=== PATIENT | male | born 2000 | race Caucasian/White ===

== ENCOUNTER 2022-01-13 20:17 | Inpatient (IN) | payer MEDICAID, OTHER ==
[~2022-01-13] VITALS: Ht 175.3 cm; Wt 69.0 kg
[2022-01-13 22:36] LABS: BASOPHILS % (AUTO) 0.6 % (0.0-2.0); EOSINOPHILS % (AUTO) 2.6 % (1.0-6.0); HEMATOCRIT 45.9 % (41-53); LYMPHOCYTES # (AUTO) 1.6 K/uL (1.0-4.8); LYMPHOCYTES % (AUTO) 15.1 % (22.0-44.0); MEAN CORPUSCULAR HGB CONC 34.9 G/dL (31.0-37.0); MEAN CORPUSCULAR VOLUME 89 fL (80-100); MONOCYTES # (AUTO) 0.6 K/uL (0.1-1.0); MONOCYTES % (AUTO) 5.9 % (2.0-9.0); NEUTROPHILS # (AUTO) 7.8 K/uL (1.8-7.7); NEUTROPHILS % (AUTO) 75.8 % (40.0-70.0); PLATELET COUNT (AUTO) 230 K/uL (150-450); RED BLOOD CELL COUNT(AUTO) 5.17 MIL/uL (4.50-5.90); RED CELL DISTRIBUTION WIDTH 13.4 % (11.5-14.5)
[2022-01-13 22:45] LABS: ANION GAP 9 mmol/L (8-16); CALCIUM, TOTAL 9.2 mg/dL (8.8-10.5); CARBON DIOXIDE 27 mmol/L (22-29); CHLORIDE 103 mmol/L (98-107); CREATININE 0.97 mg/dL (0.60-1.30); GLOMERULAR FILTR. RATE CALC > 60 mL/min (>60); GLUCOSE,RANDOM 94 mg/dL (70-110); POTASSIUM 4.2 mmol/L (3.5-5.1); SODIUM SERUM 139 mmol/L (136-145); UREA NITROGEN, BLOOD 9 mg/dL (7-18)
[2022-01-13 22:51] LABS: ALANINE AMINOTRANSFERASE 30 U/L (12-78); ALBUMIN 4.5 g/dL (3.4-5.0); ALKALINE PHOSPHATASE 102 U/L (46-116); ASPARTATE AMINOTRANSFERASE 18 U/L (15-37); BILIRUBIN,TOTAL 1.3 mg/dL (0.1-1.0); TOTAL PROTEIN, SERUM 7.7 g/dL (6.4-8.2)
[2022-01-13 22:51] LABS: AMPHET/METH SCREEN,URINE NEGATIVE (NEGATIVE); BARBITURATE SCREEN, URINE NEGATIVE (NEGATIVE); BENZODIAZEPINES SCREEN,URINE NEGATIVE (NEGATIVE); CANNABINOID SCREEN,URINE NEGATIVE (NEGATIVE); COCAINE SCREEN,URINE NEGATIVE (NEGATIVE); METHADONE SCREEN, URINE NEGATIVE (NEGATIVE); OPIATE SCREEN,URINE NEGATIVE (NEGATIVE)
[2022-01-13 22:52] LABS: PHENCYCLIDINE SCREEN,URINE NEGATIVE (NEGATIVE)
[2022-01-13 23:06] LABS: COVID AG,FIA SOURCE NASAL SWAB
[2022-01-14] MEDS ORDERED: HALOPERIDOL 5 MG TABLET PO PRN (01:30)
[2022-01-14] MEDS ORDERED: ZOLPIDEM TARTRATE 10 MG TABLET PO PRN (01:30)
[2022-01-14] MEDS: LORazepam 2 MG TABLET PO PRN ×2 (02:41→17:22)
[2022-01-14 08:51] VITALS: BP 131/86
[2022-01-14] MEDS ORDERED: ALBUTEROL SULFATE HFA 90 MCG/PUFF 8 GM INHALER IH PRN (11:30)
[2022-01-14] MEDS ORDERED: IBUPROFEN 400 MG TABLET PO PRN (11:30)
[2022-01-14] MEDS ORDERED: LOPERAMIDE HCL 2 MG CAPSULE PO PRN (11:30)
[2022-01-14] MEDS ORDERED: DOCUSATE SODIUM 100 MG CAPSULE PO PRN (11:30)
[2022-01-14] MEDS ORDERED: ACETAMINOPHEN 325 MG TABLET PO PRN (11:30)
[2022-01-14] MEDS ORDERED: MAG HYDROX/AL HYDROX/SIMETH ES 30 ML SUSPENSION UDCUP PO PRN (11:30)
[2022-01-14] MEDS ORDERED: NICOTINE 14 MG/24 HOUR PATCH TD PRN (11:30)
[2022-01-14] MEDS ORDERED: MAGNESIUM HYDROXIDE SUSPENSION 30 ML UDCUP PO PRN (11:30)
[2022-01-14] MEDS ORDERED: PETROLATUM,WHITE 28 GM JELLY TP PRN (11:30)
[2022-01-14] MEDS ORDERED: GuaiFENesin/D-METHORPHAN [SUGAR-FREE] 200-20MG/10 ML SYRUP UDCUP PO PRN (11:30)
[2022-01-14] MEDS ORDERED: CloNIDine HCL 0.1 MG TABLET PO PRN (11:30)
[2022-01-14] MEDS ORDERED: ONDANSETRON HCL 4 MG TABLET PO PRN (11:30)
[2022-01-14] MEDS: SERTRALINE HCL 50 MG TABLET PO SCH (13:46)
[2022-01-14] MEDS: BusPIRone HCL 5 MG TABLET PO SCH ×2 (13:47→21:32)
[2022-01-14 16:25] VITALS: BP 120/78
[2022-01-14 17:22] VITALS: BP 128/79
[2022-01-14] MEDS: QUEtiapine FUMARATE 25 MG TABLET PO SCH (21:32)
[2022-01-15 09:09] VITALS: BP 114/74
[2022-01-15] MEDS: BusPIRone HCL 5 MG TABLET PO SCH ×2 (09:27→20:32)
[2022-01-15] MEDS: SERTRALINE HCL 50 MG TABLET PO SCH (09:27)
[2022-01-15 16:31] VITALS: BP 128/64
[2022-01-15 17:55] VITALS: BP 111/74
[2022-01-15] MEDS: LORazepam 2 MG TABLET PO PRN (17:56)
[2022-01-15] MEDS: QUEtiapine FUMARATE 25 MG TABLET PO SCH (20:32)
[2022-01-16] MEDS: BusPIRone HCL 5 MG TABLET PO SCH ×2 (09:58→20:25)
[2022-01-16] MEDS: SERTRALINE HCL 50 MG TABLET PO SCH (09:58)
[2022-01-16] MEDS: LORazepam 2 MG TABLET PO PRN (12:21)
[2022-01-16 17:39] VITALS: BP 120/70
[2022-01-16] MEDS: QUEtiapine FUMARATE 25 MG TABLET PO SCH (20:25)
[2022-01-17 08:04] VITALS: BP 128/72
[2022-01-17] MEDS: SERTRALINE HCL 50 MG TABLET PO SCH (08:38)
[2022-01-17] MEDS: BusPIRone HCL 5 MG TABLET PO SCH ×2 (08:38→20:08)
[2022-01-17] MEDS: LORazepam 2 MG TABLET PO PRN (14:16)
[2022-01-17 16:43] VITALS: BP 115/80
[2022-01-17] MEDS: QUEtiapine FUMARATE 25 MG TABLET PO SCH (20:08)
[2022-01-18 08:00] VITALS: BP 112/73
[2022-01-18] MEDS: SERTRALINE HCL 50 MG TABLET PO SCH (11:17)
[2022-01-18] MEDS: BusPIRone HCL 5 MG TABLET PO SCH ×2 (11:17→20:15)
[2022-01-18] MEDS: LORazepam 2 MG TABLET PO PRN (13:08)
[2022-01-18 16:59] VITALS: BP 110/69
[2022-01-18] MEDS: QUEtiapine FUMARATE 25 MG TABLET PO SCH (20:16)
[2022-01-19 07:17] LABS: COVID AG,FIA SOURCE NASAL SWAB
[2022-01-19] MEDS: SERTRALINE HCL 50 MG TABLET PO SCH (08:43)
[2022-01-19] MEDS: BusPIRone HCL 5 MG TABLET PO SCH (08:43)
[2022-01-19 09:05] VITALS: BP 98/44
[2022-01-19] MEDS ORDERED: BUSP5TAB20 PO ×2 (13:24→17:24)
[2022-01-19] MEDS ORDERED: QUET25TA PO (13:24)
[2022-01-19] MEDS ORDERED: SERT-158 PO (13:24)
[2022-01-19] MEDS ORDERED: QUET25TA36 PO (17:24)
[2022-01-19] MEDS ORDERED: SERT-439 PO (17:24)
== END 2022-01-19 16:00 | disposition home or self-care (01) | DRG 751 ==
LOC: EMS 20:21 → 3EI 01-14 05:42
PROVIDERS: ADMIT Psychiatry & Neurology Psychiatry; ATTEND Psychiatry & Neurology Psychiatry
DX: F33.3 Major depressive disorder, recurrent, severe with psychotic symptoms (principal); R45.851 Suicidal ideations; F41.9 Anxiety disorder, unspecified; R03.0 Elevated blood-pressure reading, without diagnosis of hypertension; Z20.822 Contact with and (suspected) exposure to COVID-19; R10.13 Epigastric pain; Z59.00 Homelessness unspecified
CPT/HCPCS: 80053; 85025; 99285; G0480